=== PATIENT | female | born 1985 | race Two or more races ===

== ENCOUNTER 2019-09-26 23:44 | Emergency (ER) | payer MEDICAID ==
[~2019-09-26] VITALS: Ht 154.9 cm; Wt 90.7 kg
[2019-09-27 02:03] LABS: Basophils # (auto) 0.1 uL; Basophils % (auto) 0.4 % (0.0-2.0); Eosinophils # (auto) 0 uL; Eosinophils % (auto) 0.4 % (0.0-7.0); Hematocrit 47.2 % (36.0-46.0); Lymphocytes # (auto) 1.7 uL; Lymphocytes % (auto) 13.9 % (10.0-50.0); Mean Corpuscular Hemoglobin 30.2 pg (28.0-32.0); Mean Corpuscular Volume 88.8 fL (80.0-100.0); Monocytes # (auto) 0.3 uL; Monocytes % (auto) 2.7 % (0.0-12.0); Neutrophils # (auto) 9.8 uL; Neutrophils % (auto) 82.6 % (37.0-80.0); Platelet Count (auto) 267 10^3/uL (140-450); Red Blood Cells 5.31 10^6/uL (4.0-5.20); Red Cell Distribution Width 13.3 % (11.8-14.3); White Blood Cell 11.9 10^3/uL (4.4-10.8)
[2019-09-27 02:12] LABS: Urine Bacteria FEW /hpf (None Seen); Urine Blood Negative /uL (Negative); Urine Mucus FEW (None Seen); Urine Specific Gravity 1.008 (1.001-1.035); Urine WBC 1 /hpf (0 - 5)
[2019-09-27 02:24] LABS: Albumin 3.8 g/dL (3.4-5.0); BUN/Creatinine Ratio 11.4; Calcium 9.3 mg/dL (8.5-10.1); Potassium 3.9 mmol/L (3.5-5.1)
[2019-09-27 02:27] LABS: Bilirubin, Total 0.4 mg/dL (0.2-1.0); Total Protein 8.1 g/dL (6.4-8.2)
[2019-09-27] MEDS ORDERED: PANTOPRAZOLE 40 MG/10 ML VIAL INJ IV STA (06:17)
[2019-09-27] MEDS ORDERED: SODIUM CHLORIDE 0.9% 1,000 ML IVB ONE (06:17)
[2019-09-27] MEDS ORDERED: ONDANSETRON HCL 4 MG/2 ML VIAL IV ONE (06:30)
[2019-09-27 07:35] VITALS: BP 102/62
== END 2019-09-27 08:30 | disposition home or self-care (01) ==
LOC: ER 23:46
DX: K29.70 Gastritis, unspecified, without bleeding (principal); R11.2 Nausea with vomiting, unspecified
CPT/HCPCS: 36415; 76705; 80053; 81001; 83690; 84702; 85025; 96361; 96374; 96375; 99284; C9113; J2405; J7030

== ENCOUNTER 2023-05-21 00:31 | Emergency (ER) | payer MEDICAID ==
[~2023-05-21] VITALS: Ht 154.9 cm; Wt 95.0 kg
[2023-05-21] MEDS ORDERED: ONDANSETRON ODT 4 MG TAB PO ONE ×2 (00:45→07:45)
[2023-05-21 01:32] LABS: Urine Bacteria FEW /hpf (None Seen); Urine Blood 3+ /uL (Negative); Urine Mucus FEW (None Seen); Urine Specific Gravity 1.029 (1.001-1.035); Urine WBC 11 /hpf (0 - 5)
[2023-05-21 01:46] LABS: Basophils # (auto) 0 10 ^3/uL (0-0.2); Basophils % (auto) 0.3 % (0.0-2.0); Eosinophils # (auto) 0.1 10 ^3/uL (0-0.8); Eosinophils % (auto) 1.1 % (0.0-7.0); Hemoglobin 14.9 g/dL (12.2-16.2); Lymphocytes # (auto) 1.6 10 ^3/uL (0.4-5.4); Lymphocytes % (auto) 17.9 % (10.0-50.0); Mean Corpuscular Hemoglobin 29.8 pg (28.0-32.0); Mean Corpuscular Hgb Conc. 33.2 g/dL (32.0-36.0); Mean Corpuscular Volume 89.5 fL (80.0-100.0); Monocytes # (auto) 0.4 10 ^3/uL (0-1.3); Monocytes % (auto) 4.4 % (0.0-12.0); Neutrophils # (auto) 6.9 10 ^3/uL (1.6-8.6); Neutrophils % (auto) 76.3 % (37.0-80.0); Nucleated Red Blood Cells % 0.1 %; Red Blood Cells 5.02 10^6/uL (4.0-5.20)
[2023-05-21 02:02] LABS: Albumin 3.7 g/dL (3.4-5.0); Calcium 8.7 mg/dL (8.5-10.1); Magnesium 2.1 mg/dL (1.6-2.6); Potassium 3.4 mmol/L (3.5-5.1)
[2023-05-21 02:05] LABS: BUN/Creatinine Ratio 15.6 (10.0-20.0)
[2023-05-21 02:08] LABS: Bilirubin, Total 0.3 mg/dL (0.2-1.0); Total Protein 7.4 g/dL (6.4-8.2)
[2023-05-21] MEDS ORDERED: HYDROcodone-ACET 10/325MG TAB PO ONE (03:30)
[2023-05-21 07:25] VITALS: BP 119/76; PULSE 61; RESP 17; TEMP 97.8; O2SAT 98
[2023-05-21] MEDS ORDERED: FAMO20TA10 PO (07:44)
[2023-05-21] MEDS ORDERED: METR-344 PO (07:44)
[2023-05-21] MEDS ORDERED: LOPE7.5C PO (07:44)
[2023-05-21] MEDS ORDERED: ACET-1304 PO (07:44)
[2023-05-21] MEDS ORDERED: ZOFR4T PO (07:44)
[2023-05-21] MEDS ORDERED: metroNIDAZOLE 500 MG TAB PO ONE (07:45)
[2023-05-21] MEDS ORDERED: LOPERAMIDE HCL 2 MG CAP/TAB PO ONE (07:45)
[2023-05-21] MEDS ORDERED: FAMOTIDINE 20 MG TAB PO ONE (07:45)
== END 2023-05-21 07:57 | disposition home or self-care (01) ==
LOC: ER 00:34
DX: R10.12 Left upper quadrant pain (principal); R10.11 Right upper quadrant pain; R11.2 Nausea with vomiting, unspecified; R51.9 Headache, unspecified; R19.7 Diarrhea, unspecified; K29.70 Gastritis, unspecified, without bleeding
CPT/HCPCS: 36415; 74176; 80053; 81001; 83605; 83690; 83735; 85025; 99284; Q0162